=== PATIENT | female | born 1950 | race Caucasian/White ===

== ENCOUNTER 2019-09-22 14:40 | Emergency (ER) | payer MEDICARE ==
[~2019-09-22] VITALS: Ht 165.1 cm; Wt 88.2 kg
[2019-09-22 15:48] VITALS: BP 140/95
== END 2019-09-22 15:49 | disposition home or self-care (01) ==
LOC: ER 14:41
DX: J20.9 Acute bronchitis, unspecified (principal); J06.9 Acute upper respiratory infection, unspecified; Z87.891 Personal history of nicotine dependence
CPT/HCPCS: 99281